=== PATIENT | male | born 1995 ===

== ENCOUNTER → 2022-05-29 | Outpatient (CLI) | payer OTHER ==
[~2022-05-29] MED LIST: IOHEXOL 350 MG/ML 100 ML VIAL ONE; SODIUM CHLORIDE 0.9% 100 ML ONE
== END | disposition home or self-care (01) ==
LOC: RADMN 04:21
DX: R10.30 Lower abdominal pain, unspecified (principal); M79.89 Other specified soft tissue disorders
CPT/HCPCS: 74177; Q9967; J7050